=== PATIENT | male | born 1985 | race Two or more races ===

== ENCOUNTER 2019-08-26 11:08 | Emergency (ER) | payer BC, MEDICAID ==
[~2019-08-26] VITALS: Ht 160 cm; Wt 71.7 kg
[2019-08-26 11:15] VITALS: BP 128/91
[2019-08-26] MEDS ORDERED: ACETAMINOPHEN ES 500 MG TABLET PO ONE (11:30)
[2019-08-26] MEDS ORDERED: IBUPROFEN 600 MG TABLET PO ONE ×2 (11:51→12:00)
--- NOTE | 2019-08-26 13:57 | NUR ---
Patient discharged to home in stable condition. Written and verbal after care instructions given. Patient verbalizes understanding of instruction.
== END 2019-08-26 13:58 | disposition home or self-care (01) ==
LOC: ER 11:13
DX: R50.9 Fever, unspecified (principal); R11.2 Nausea with vomiting, unspecified
CPT/HCPCS: 71045-TC